=== PATIENT | male | born 1940 | race Caucasian/White ===

== ENCOUNTER → 2016-04-19 | Outpatient (CLI) | payer OTHER | LOC: HEART 5 11:30 | DX: R06.02 Shortness of breath (principal) | CPT/HCPCS: 94010 ==

== ENCOUNTER → 2016-06-20 | Outpatient (CLI) | payer OTHER | LOC: RAD 08:30 | DX: R13.10 Dysphagia, unspecified (principal); K22.8 Other specified diseases of esophagus; K21.9 Gastro-esophageal reflux disease without esophagitis | CPT/HCPCS: 74220 ==

== ENCOUNTER → 2020-02-18 | Outpatient (CLI) | payer OTHER | LOC: HEART 5 08:14 | DX: I20.8 Other forms of angina pectoris (principal); I35.1 Nonrheumatic aortic (valve) insufficiency; R53.83 Other fatigue; R06.02 Shortness of breath; R93.1 Abnormal findings on diagnostic imaging of heart and coronary circulation; I37.1 Nonrheumatic pulmonary valve insufficiency; R94.39 Abnormal result of other cardiovascular function study | CPT/HCPCS: 78452; 93306; A9502 ==

== ENCOUNTER → 2021-02-26 | Outpatient (CLI) | payer OTHER | LOC: KOH-I 13:39 | DX: R61 Generalized hyperhidrosis (principal) | CPT/HCPCS: 71046 ==

== ENCOUNTER → 2021-03-16 | Outpatient (CLI) | payer OTHER | LOC: CT 09:23 | DX: R61 Generalized hyperhidrosis (principal); R91.8 Other nonspecific abnormal finding of lung field | CPT/HCPCS: 71250; Q9967 ==